=== PATIENT | female | born 1940 | race Caucasian/White ===

== ENCOUNTER 2019-01-02 21:54 | Emergency (ER) | payer OTHER ==
[2019-01-02 23:36] LABS: Absolute Lymphocytes (CBC) 1.8 K/uL (0.7-4.9); Absolute Monocytes 0.6 K/uL (0.1-1.3); Absolute Neutrophil 3.8 K/uL (1.8-8.0); Eosinophils % 2.2 % (0-4.4); Hematocrit 40.5 % (36.0-45.0); Lymphocytes % 28.4 % (15.3-44.8); MPV 7.8 fL (7.6-11.3); Monocytes % 9.6 % (3.3-12.3); RBC Red Blood Cell Count 4.76 M/uL (3.86-4.86)
[2019-01-02 23:47] LABS: Potassium 4.2 mmol/L (3.5-5.1)
--- NOTE | 2019-01-03 02:21 | ER ---
Nurse's Notes [facility] Name: Sivan Morris Age: 78 yrs Sex: Female : 1940 Arrival Date: 01/02/2019 Time: 22:01 Bed 28 Private MD: Diagnosis: Edema, not elsewhere classified Presentation: 01/02 22:01 Presenting complaint: Patient states: I have swelling in both of my legs for over a ed1 month now. No SOB. Transition of care: patient was not received from another setting of care. Onset of symptoms was November 2018. Risk Assessment: Do you want to hurt yourself or someone else? Patient reports no desire to harm self or others. Initial Sepsis Screen: Does the patient meet any 2 criteria? No. Patient's initial sepsis screen is negative. Does the patient have a suspected source of infection? No. Patient's initial sepsis screen is negative. Care prior to arrival: None. 22:01 Method Of Arrival: Ambulatory ed1 22:01 Acuity: BRIANA 3 ed1 Triage Assessment: 22:03 General: Appears in no apparent distress. Behavior is calm, cooperative. Pain: Denies ed1 pain. Historical: - Allergies: 22:03 No Known Allergies; ed1 - Home Meds: 22:03 None [Active]; ed1 - PMHx: 22:03 None; ed1 - PSHx: 22:03 None; ed1 - Immunization history:: Adult Immunizations not up to date, Flu vaccine is not up to date. - Social history:: Smoking status: Patient/guardian denies using tobacco. - Ebola Screening: : Patient negative for fever greater than or equal to 101.5 degrees Fahrenheit, and additional compatible Ebola Virus Disease symptoms Patient denies exposure to infectious person Patient denies travel to an Ebola-affected area in the 21 days before illness onset No symptoms or risks identified at this time. Screenin/23 00:29 Abuse screen:. Abuse screen: Denies threats or abuse. Denies injuries from another. mg2 Nutritional screening: No deficits noted. Tuberculosis screening: No symptoms or risk factors identified. Fall Risk None identified. Assessment: 00:29 General: Appears in no apparent distress. comfortable, Behavior is calm, cooperative. mg2 Pain: Denies pain. Neuro: No deficits noted. Cardiovascular: No deficits noted. Respiratory: Airway is patent Respiratory effort is even, unlabored, Respiratory pattern is regular, symmetrical. GI: No signs and/or symptoms were reported involving the gastrointestinal system. : No signs and/or symptoms were reported regarding the genitourinary system. EENT: No signs and/or symptoms were reported regarding the EENT system. Derm: Skin is intact, is healthy with good turgor, Skin is pink, warm \T\ dry. normal. Musculoskeletal: Circulation, motion, and sensation intact. Capillary refill < 3 seconds, Swelling present in right leg and left leg. 01:53 Reassessment: filling technician at bedside doing the procedure. mg2 02:42 Reassessment: Patient appears in no apparent distress at this time. Patient and/or mg2 family updated on plan of care and expected duration. Pain level reassessed. Patient is alert, oriented x 3, equal unlabored respirations, skin warm/dry/pink. Vital Signs: 01/02 22:03 BP 147 / 81; Pulse 73; Resp 18; Temp 98.0(O); Pulse Ox 98% on R/A; Height 5 ft. 2 in. ed1 (157.48 cm); Pain 0/10; 01/03 00:30 Pulse 75; Resp 18; Pulse Ox 98% on R/A; mg2 02:42 BP 132 / 78; Pulse 70; Resp 18; Temp 98; Pulse Ox 100% on R/A; Pain 0/10; mg2 ED Course: 01/02 22:01 Patient arrived in ED. ed1 22:03 Triage completed. ed1 22:03 Arm band placed on right wrist. ed1 22:17 Noah Boyle, TOPHER is Primary Nurse. mg2 22:28 Sher Pagan MD is Attending Physician. 23:43 Notified ED physician of a critical lab result(s). d dimer of 1542. fc 01/03 00:30 No provider procedures requiring assistance completed. Patient did not have IV access mg2 during this emergency room visit. 02:16 US Extremity Venous W Compression Pradeep In Process Unspecified. EDMS 02:43 Patient has correct armband on for positive identification. mg2 Administered Medications: No medications were administered Outcome: 02:21 Discharge ordered by . gs 02:42 Discharged to home ambulatory, with family. mg2 02:42 Condition: stable 02:42 Discharge instructions given to patient, family, Instructed on discharge instructions, follow up and referral plans. medication usage, Demonstrated understanding of instructions, follow-up care, medications, Prescriptions given X 1. 02:43 Patient left the ED. mg2 Signatures: Dispatcher [employer] EDMS Le Hylton, RN RN Jania Charles RN RN ed1 Sher Pagan MD MD Noah Boyle RN RN mg2
--- NOTE | 2019-01-03 02:21 | EDPHYS ---
Physician Documentation [facility] Name: Sivan Morris Age: 78 yrs Sex: Female : 1940 Arrival Date: 01/02/2019 Time: 22:01 Bed 28 Private MD: ED Physician Sher Pagan HPI: 01/03 01:37 This 78 yrs old Female presents to ER via Ambulatory with complaints of Leg gs Swelling. 01:37 The complaints affect the left leg and right leg. Onset: The symptoms/episode gs began/occurred 1 month(s) ago. Modifying factors: The symptoms are alleviated by nothing. the symptoms are aggravated by nothing. Associated signs and symptoms: Pertinent negatives fever, sob,cp. Severity of symptoms: At their worst the symptoms were moderate, in the emergency department the symptoms are unchanged. The patient has experienced similar episodes in the past, a few times. Historical: - Allergies: 01/02 22:03 No Known Allergies; ed1 - Home Meds: 22:03 None [Active]; ed1 - PMHx: 22:03 None; ed1 - PSHx: 22:03 None; ed1 - Immunization history:: Adult Immunizations not up to date, Flu vaccine is not up to date. - Social history:: Smoking status: Patient/guardian denies using tobacco. - Ebola Screening: : Patient negative for fever greater than or equal to 101.5 degrees Fahrenheit, and additional compatible Ebola Virus Disease symptoms Patient denies exposure to infectious person Patient denies travel to an Ebola-affected area in the 21 days before illness onset No symptoms or risks identified at this time. ROS: 01/03 01:37 All other systems are negative. gs Exam: 01:37 Head/Face: Normocephalic, atraumatic. Eyes: Pupils equal round and reactive to light, gs extra-ocular motions intact. Lids and lashes normal. Conjunctiva and sclera are non-icteric and not injected. Cornea within normal limits. Periorbital areas with no swelling, redness, or edema. ENT: Nares patent. No nasal discharge, no septal abnormalities noted. Tympanic membranes are normal and external auditory canals are clear. Oropharynx with no redness, swelling, or masses, exudates, or evidence of obstruction, uvula midline. Mucous membranes moist. Neck: Trachea midline, no thyromegaly or masses palpated, and no cervical lymphadenopathy. Supple, full range of motion without nuchal rigidity, or vertebral point tenderness. No Meningismus. Chest/axilla: Normal chest wall appearance and motion. Nontender with no deformity. No lesions are appreciated. Cardiovascular: Regular rate and rhythm with a normal S1 and S2. No gallops, murmurs, or rubs. Normal PMI, no JVD. No pulse deficits. Respiratory: Lungs have equal breath sounds bilaterally, clear to auscultation and percussion. No rales, rhonchi or wheezes noted. No increased work of breathing, no retractions or nasal flaring. Abdomen/GI: Soft, non-tender, with normal bowel sounds. No distension or tympany. No guarding or rebound. No evidence of tenderness throughout. Back: No spinal tenderness. No costovertebral tenderness. Full range of motion. Skin: Warm, dry with normal turgor. Normal color with no rashes, no lesions, and no evidence of cellulitis. Neuro: Awake and alert, GCS 15, oriented to person, place, time, and situation. Cranial nerves II-XII grossly intact. Motor strength 5/5 in all extremities. Sensory grossly intact. Cerebellar exam normal. Normal gait. 01:37 Constitutional: The patient appears alert, awake. 01:37 Musculoskeletal/extremity: Pulses: are normal with no appreciated deficits, Edema, 3+ to the left midcalf, left ankle, right midcalf and right ankle is noted. Vital Signs: 01/02 22:03 BP 147 / 81; Pulse 73; Resp 18; Temp 98.0(O); Pulse Ox 98% on R/A; Height 5 ft. 2 in. ed1 (157.48 cm); Pain 0/10; 01/03 00:30 Pulse 75; Resp 18; Pulse Ox 98% on R/A; mg2 02:42 BP 132 / 78; Pulse 70; Resp 18; Temp 98; Pulse Ox 100% on R/A; Pain 0/10; mg2 MDM: 01/02 23:09 Patient medically screened. gs 01/03 02:22 Differential diagnosis: edema,dvt,crf. Data reviewed: vital signs, nurses notes, lab gs test result(s), radiologic studies. Counseling: I had a detailed discussion with the patient and/or guardian regarding: the historical points, exam findings, and any diagnostic results supporting the discharge/admit diagnosis, the presence of at least one elevated blood pressure reading (>120/80) during this emergency department visit, lab results, radiology results, the need for outpatient follow up. Response to treatment: the patient's symptoms have mildly improved after treatment. Special discussion: I have referred the patient to see his PCP for further evaluation of high blood pressure. 01/02 23:10 Order name: CBC with Diff; Complete Time: 23:40 01/02 23:10 Order name: Basic Metabolic Panel; Complete Time: 23:48 01/02 23:10 Order name: D-Dimer; Complete Time: 23:48 01/02 23:49 Order name: US Extremity Venous W Compression Pradeep gs Administered Medications: No medications were administered Disposition: 01/03/19 02:21 Discharged to Home. Impression: Edema, not elsewhere classified. - Condition is Stable. - Discharge Instructions: Edema, Xtre-wm-Voun, Peripheral Edema. - Prescriptions for Triamterene- Hydrochlorothiazid 37.5-25 mg Oral Tablet - take 1 tablet by ORAL route once daily; 7 tablet. - Medication Reconciliation Form, Thank You Letter, Antibiotic Education, Prescription Opioid Use form. - Follow up: Private Physician; When: 1 - 2 days; Reason: Re-evaluation by your physician. Signatures: Dispatcher [employer] EDJania Morillo RN RN ed1 Sher Pagan MD MD Noah Boyle RN RN mg2 Corrections: (The following items were deleted from the chart) 02:43 02:21 01/03/2019 02:21 Discharged to Home. Impression: Edema, not elsewhere classified. mg2 Condition is Stable. Forms are Medication Reconciliation Form, Thank You Letter, Antibiotic Education, Prescription Opioid Use. Follow up: Private Physician; When: 1 - 2 days; Reason: Re-evaluation by your physician.
--- NOTE | 2019-01-03 07:09 | RAD REPORT ---
EXAM DESCRIPTION: US - Extrem Venous W Compress Pradeep - 01/03/2019 2:37 am COMPARISON: None. TECHNIQUE: Real-time sonographic evaluation of the bilateral lower extremity common femoral, superfi cial femoral, popliteal and posterior tibial veins was performed. FINDINGS: Normal compressibility, flow augmentation, phasic flow and spontaneous flow are identified in the left and right lower extremity common femoral, superficial femoral, popliteal and posterior t ibial veins. No intraluminal filling defects seen. IMPRESSION: No DVT in either lower extremity.
== END 2019-01-03 02:43 | disposition home or self-care (01) ==
LOC: ER 21:54
DX: R60.9 Edema, unspecified (principal)
CPT/HCPCS: 36415; 80048; 85025; 85379; 93970; 99283

== ENCOUNTER 2020-06-23 11:35 | Emergency (ER) | payer MEDICARE, OTHER ==
--- OUTSIDE RECORDS SUMMARY | 2020-06-23 11:47 | XMS REPORT | Summary of Care ---
:1940 Author Organization [facility] - [facility] Address [address] [place] [address] Care Team Providers Name Role Phone Malathi Ta MD Primary Care Provider [phone] Reason for Visit Reason Onset Date Comments Erroneous encounter-disregard 06/10/2020 Encounter Details Date Type Department Care Team Description 05/19/2020 Telemedicine Visit [facility] [place], Annie glynne t Alzheimer's disease without behavioral disturbance (Primary Dx); Pediatric and Adult Malathi Aquino MD Encounter for medication refill; Primary Care- [address] [place] [address] D r Leg swelling; [facility] 103 ERRONEOUS ENCOUNTER--DISREGARD [address] [place] [address], [address] [address] [place], [place] [phone] [address] Allergies No Known Allergiesdocumented as of this encounter (statuses as of 06/10/2020) Medications Medication Sig Dispensed Refills Start End Date Status Date PYRIDOXINE HCL, VITAMIN Take 20 mg 0 Active B6, (VITAMIN B-6 ORAL) by mouth daily. Take 20 mg daily. hydroCHLOROthiazide 50 Take 1 90 tablet 3 Active mg tabletIndications: tablet by 0 Encounter for mouth medication refill, Leg daily. Keep swelling on hold. HYDROCHLOROTHIAZIDE 50 TAKE 1 90 tablet 3 11/22/201 10/06/2 0 Discontinued mg tabletIndications: TABLET BY 9 20 (Reorder) Encounter for MOUTH EVERY medication refill, Leg MORNING AND swelling EVENING. documented as of this encounter (statuses as of 06/10/2020) Active Problems Problem Noted Date Prediabetes 11/23/2017 Hair loss 11/23/2017 Short-term memory loss 11/23/2017 documented as of this encounter (statuses as of 06/10/2020) Immunizations Name Administration Dates Next Due Influenza High Dose 06/11/2019, 07/05/2017 Pneumococcal 13 Conjugate, PCV13 (Prevnar 13) 11/23/2017 Pneumococcal Polysaccharide, PPSV23 (PNEUMOVAX) 06/11/2019 documented as of this encounter Social History Tobacco Use Types Packs/Day Years Used Date Former Smoker Cigarettes Quit: 11/02/18 98 Smokeless Tobacco: Never Used Comments: quit late Alcohol Use Drinks/Week oz/Week Comments No Sex Assigned at Date Recorded Not on file COVID-19 Exposure Response Date Recorded In the last month, have you been in contact Unable to assess 05/18/2020 11:03 AM CDT with someone who was confirmed or suspected to have Coronavirus / COVID-19? documented as of this encounter Last Filed Vital Signs Not on filedocumented in this encounter Progress Notes Malathi Ta MD - 05/19/2020 3:00 PM CDTerror documented in this encounter Plan of Treatment Health Maintenance Due Date Last Done Comments Depression Screening 1952 Medicare Wellness Visit 2006 Osteoporosis Screening 2006 INFLUENZA VACCINE (#1) 2020 06/11/2019, 07/05/2017 DTaP,Tdap,and Td Vaccines (1 06/11/2020 Pos tponed from 1960 - Tdap) (Insurance / Fin ancial) Zoster Recombinant Vaccine 06/11/2020 Postp oned from 12/25/1991 (SHINGRIX) (1 of 2) (Insurance / Financial) PNEUMOCOCCAL VACCINES 65+ Completed 06/11/2019, 11/23/2017 documented as of this encounter Results Not on filedocumented in this encounter Visit Diagnoses Diagnosis Late onset Alzheimer's disease without b ehavioral disturbance - Primary Encounter for medication refill Issue of repeat prescriptions Leg swelling Swelling of limb ERRONEOUS ENCOUNTER--DISREGARD documented in this encounter Insurance Payer Benefit Plan / Subscriber ID Effective Phone Address T e Group [facility] [id number] 2019-Toyin sanchez Formerly [facility] HEALTHCARE - MEDIC[facility] documented as of this encounter
--- OUTSIDE RECORDS SUMMARY | 2020-06-23 11:47 | XMS REPORT | Summary of Care ---
:1940 Author Organization [facility] - [facility] Address [address] [place] [address] Care Team Providers Name Role Phone Malathi Ta MD Primary Care Provider [phone] Reason for Visit Reason Comments Assessment alt visit Encounter Details Date Type Department Care Team Description 05/19/2020 Telephone [facility] Pediatric Jenni Ta Assessment (alt visit) and Adult Primary MD [facility]- [address], [address] [phone] [address] [phone] Allergies No Known Allergiesdocumented as of this encounter (statuses as of 06/10/2020) Medications Medication Sig Dispensed Refills Start Date End Date Status PYRIDOXINE HCL, VITAMIN B6, Take 20 mg by 0 Active (VITAMIN B-6 ORAL) mouth daily. Take 20 mg daily. hydroCHLOROthiazide 50 mg Take 1 tablet 90 tablet 3 05/19/2020 Active tabletIndications: by mouth Encounter for medication daily. Keep refill, Leg swelling on hold. documented as of this encounter (statuses as [...] Signs Not on filedocumented in this encounter Miscellaneous Notes Telephone Encounter - Malathi Ta MD - 06/10/2020 12:03 PM CDTSpoke with patient niece, patient is not present. Per patient niece, patient is now living with her and patients granddaughter is still helping take care of her. Her memory is worse, she's wondering off, and she's using the bathroom on herself. She hasn't noticed any signs of infection but she has noticed a rash in the patients private area, she feels like it's related to her using the bathroom on herself and she doesn't think it's a yeast infections. She's tried to get her to wear diapers and pads but patient doesn't like them and takes them off. She states patient gets angery when she's told whatneeds to be done. Patient niece states she doesn't know what to do, she's a little tearful and states she just wants to get her the help she needs. Patient has been taking B12, B1, B6, zinc, and melatonin. Niece reports no mold exposure as far as she's aware of. Niece states she has a hard time getting her to eat vegetables, discussed green smoothies. Late onset Alzheimer's disease without behavioral disturbance (primary encounter diagnosis) Comment: memory seems to be worse. Family would like to see about provider services, referral sent to social work. Plan: CONSULT/REFERRAL SOCIAL WORK-AMBULATORY Encounter for medication refill Comment: needs refill. Plan: hydroCHLOROthiazide 50 mg tablet Leg swelling Comment: controlled on medication. Plan: hydroCHLOROthiazide 50 mg tablet, CANCELED: CONSULT/REFERRAL SOCIAL WORK-AMBULATORY documented in this encounter Plan of Treatment [...] Results Not on filedocumented in this encounter Insurance Payer Benefit Plan / Subscriber ID Effective Phone Address T ype Group Dates [facility] [id number] 2019-Toyin sanchez [facility] HEALTHCARE - MEDICARE HMO MANAGED MEDICARE ADVANTAGE documented as of this encounter
--- OUTSIDE RECORDS SUMMARY | 2020-06-23 11:47 | XMS REPORT | Summary of Care ---
:1940 Author Organization [facility] - [facility] Address [address] [place] [address] Care Team Providers Name Role Phone Malathi Ta MD Primary Care Provider [phone] Reason for Visit Reason Comments Home Care Planning Provider Social Work Medicaid Encounter Details Date Type Department Care Team Description 05/21/[address] [facility] Alice Jim, Home Car e Planning Pediatric and Adult MEDICAL OFFICE SUPERVISOR (Provider); Social Primary Care- [address] [place] [address] (Medica id) [place] [address] Drive, [address] [place] [address] Allergies No Known Allergiesdocumented as of this encounter (statuses as of 05/21/2020) Medications Medication Sig Dispensed Refills Start Date End Date Status PYRIDOXINE HCL, VITAMIN B6, Take 20 mg by 0 Active (VITAMIN B-6 ORAL) mouth daily. Take 20 mg daily. hydroCHLOROthiazide 50 mg Take 1 tablet 90 tablet 3 05/19/2020 Active tabletIndications: by mouth Encounter for medication daily. Keep refill, Leg swelling on hold. documented as of this encounter (statuses as of 05/21/2020) Active Problems Problem Noted Date Prediabetes 11/23/2017 Hair loss 11/23/2017 Short-term memory loss 11/23/2017 documented as of this encounter (statuses as of 05/21/2020) Immunizations Name Administration Dates Next Due Influenza [...] on filedocumented in this encounter Progress Notes Alice Jim LMSW - 05/21/2020 1:52 PM CDTSocial Work Note Clinical Coordinator (SW) received order/consult for Provider services and Medicaid. Sw spoke with patients Niece (Lenora Hinds p: [phone]) by phone to assess needs. Niece shared patients illness history; expressing feelings. SW provided active and reflective feelings; validating Niece's feelings. Niece requests assitance with patients daily cares. SW reviewed insurance limitations for Provider services. Niece verbalized understanding. SW reviewedMedicaid program eligibility. Patient not eligible for program SW reviewed [facility]; providing contact information (p: [phone]). Niece vebralzied understanding. SW reviewed D-CARE study (p: [phone]) and [facility] Caregiver Connections support group (p: [phone]); providing contact information. Niece verbalized understanding; expressing appreciation. No new need identified at present. SW services complete. Alice Jim LMSW, [facility] Clinical Coordinator- Application Defense Manager Management [facility]- [facility] Tyrell Carreno [place] Ph: [phone] Pager: [phone] Em: [email or web address] documented in this encounter Plan of Treatment [...] Effective Phone Address T ype Group Dates [facility]/[place] [id number] 2019-Toyin Potts [facility] - MEDICARE HMO MANAGED MEDICARE ADVANTAGE documented as of this encounter
--- OUTSIDE RECORDS SUMMARY | 2020-06-23 11:47 | XMS REPORT | Summary of Care ---
:1940 Author Organization [facility] - Health Address [address] [place] [address] Care Team Providers Name Role Phone Malathi Ta MD Primary Care Provider [phone] Reason for Visit Reason Comments Error Encounter Details Date Type Department Care Team Description 06/10/2020 Telephone [facility] Pediatric and Nora Ta Error Adult Primary Care- [address] [address] [address] [place] [address] [place] [address] [phone] Allergies No Known Allergiesdocumented as of this [...] Encounter - Malathi Ta MD - 06/10/2020 12:01 PM CDTerror documented in this encounter Plan [...] Effective Phone Address T ype Group Dates [employer] [id number] 2019-Toyin sanchez [facility] HEALTHCARE - MEDIC[facility]AGE documented as of this encounter
--- OUTSIDE RECORDS SUMMARY | 2020-06-23 11:48 | XMS REPORT | Continuity of Care Document ---
:1940 Author Organization [facility] t Address [address] [place] [address] Care Team Providers Name Role Phone Miles Ta MD Attending Clinician Nathanael Jim LMSW Attending Clinician Pob, Lab Main Attending Clinician Unavailable Problems This patient has no known problems. Allergies, Adverse Reactions, Alerts This patient has no known allergies or adverse reactions. Medications This patient has no known medications. Procedures This patient has no known procedures. Encounters Start End Encounter Admission Attending Care Care Encounter Source Date/Time Date/Time Type Type Clinicians Facility Department ID 2020-06-10 2020-06-10 Telephone CHARLA Ta [id number] 00:00:00 00:00:00 Malathi Joseph [id number] [place] [id number] Prof[place] [phone] [address] 2020-05-21 2020-05-21 Patient CHARLA Jim [id number] 00:00:00 00:00:00 Outreach Alice Joseph [id number] [place] [id number] Prof[place] [phone] [address] 2020-05-19 2020-05-19 Telemedici CHARLA Ta [id number] 08:07:16 08:47:16 ne Visit Malathi Joseph [id number] [place] [id number] Professio [phone] [address] 2020-05-19 2020-05-19 Telephone [facility] [id number] 00:00:00 00:00:00 Malathi A Agency [id number] [place] [id number] Professio [phone] [address] 2020-03-18 2020-03-18 Telephone [facility] [id number] 00:00:00 00:00:00 Malathi Joseph [id number] [place] [id number] Professio [phone] [address] 2020-03-05 2020-03-05 Highway Construction Inspector Gloria Abel [facility] [id number] 11:30:04 11:45:04 Visit Lab Main Jake [id number] [place] [id number] Professio [phone] [address] Results This patient has no known results.
--- NOTE | 2020-06-23 13:06 | RAD REPORT ---
EXAM DESCRIPTION: CT - Facial Bones W/ Mpr - 06/23/2020 12:44 pm CLINICAL HISTORY: Facial injury with facial pain status post fall COMPARISON: None TECHNIQUE: Computed axial tomography of the face was obtained. Coronal and sagittal reconstruction w as performed. All CT scans are performed using dose optimization technique as appropriate and may include automated exposure control or mA/KV adjustment according to patient size. FINDINGS: A fracture is not seen. A TMJ dislocation is not noted. The globes are intact. Fluid within the sinuses is not seen. IMPRESSION: Negative for a facial fracture.
--- NOTE | 2020-06-23 13:06 | RAD REPORT ---
EXAM DESCRIPTION: CT - Head C Spine Mpr Wo Con - 06/23/2020 12:44 pm CLINICAL HISTORY: Head and neck injury status post fall. Head and neck pain COMPARISON: None. TECHNIQUE: Computed axial tomography of the head and cervical spine was obtained. Sagittal and coronal reconstruction was performed. All CT scans are performed using dose optimization technique as appropriate and may include automated exposure control or mA/KV adjustment according to patient size. FINDINGS: Mild to moderate low-density areas within periventricular, subcortical white matter likely ischemic secondary to small vessel disease An intracranial bleed is not seen. The ventricles are normal in caliber. An extra-axial fluid collect ion is not noted.Fluid within the visualized sinuses and mastoids is not seen A cervical fracture is not visualized. No dislocation is noted. Spondylosis cervical spine IMPRESSION: No acute intracranial abnormality is seen. A cervical fracture is not visualized. If the patient continues to have symptoms to suggest intracra nial /spinal cord pathology then MRI would be recommended
--- NOTE | 2020-06-23 13:16 | RAD REPORT ---
EXAM DESCRIPTION: RAD - Shoulder Right 2 View - 06/23/2020 12:55 pm CLINICAL HISTORY: Right shoulder pain FINDINGS: No fracture or dislocation is seen. Bones are osteoporotic
--- NOTE | 2020-06-23 13:18 | RAD REPORT ---
EXAM DESCRIPTION: Tad Single View06/23/2020 12:55 pm CLINICAL HISTORY: Chest pain COMPARISON: none FINDINGS: The lungs appear clear of acute infiltrate. The heart is normal size IMPRESSION: No acute abnormalities displayed
--- NOTE | 2020-06-23 15:26 | ER ---
Nurse's Notes [facility] Name: Sivan Morris Age: 79 yrs Sex: Female : 1940 Arrival Date: 06/23/2020 Time: 11:41 Bed 15 Private MD: Diagnosis: Fall on same level from slipping, tripping and stumbling;Abrasion of eyelid and periocular area;Abrasion of right shoulder;Pain in right shoulder;Unspecified injury of head Presentation: 06/23 11:41 Chief complaint: EMS states: tripped on cement curve and fell hitting right cheek and aa5 right arm. Abrasions noted to right cheek and right shoulder. Pt denies head injury, denies LOC. Coronavirus screen: Client denies travel out of the [place] in the last 14 days. At this time, the client does not indicate any symptoms associated with coronavirus-19. Ebola Screen: Patient negative for fever greater than or equal to 101.5 degrees Fahrenheit, and additional compatible Ebola Virus Disease symptoms. Initial Sepsis Screen: Does the patient meet any 2 criteria? No. Patient's initial sepsis screen is negative. Does the patient have a suspected source of infection? No. Patient's initial sepsis screen is negative. Risk Assessment: Do you want to hurt yourself or someone else? Patient reports no desire to harm self or others. Onset of symptoms was June 23, 2020. 11:41 Method Of Arrival: EMS: [facility] aa5 11:41 Acuity: BRIANA 3 aa5 11:42 Care prior to arrival: IV initiated. 20 GA, in the right antecubital area, Glucose aa5 check: 101. Historical: - Allergies: 11:43 No Known Allergies; aa5 - Home Meds: 11:45 hydrochlorothiazide 50 mg Oral tab once daily [Active]; aa5 - PMHx: 11:43 Dementia; Hypertension; aa5 - Immunization history:: Adult Immunizations unknown. - Social history:: Smoking status: Patient denies any tobacco usage or history of. Screenin:56 Abuse screen: Denies threats or abuse. Nutritional screening: No deficits noted. tw2 Tuberculosis screening: No symptoms or risk factors identified. Fall Risk Secondary diagnosis (15 points) impaired mobility. Assessment: 12:05 General: Appears in no apparent distress. slender, Behavior is calm, cooperative, tw2 appropriate for age. Pain: Complains of pain in right cheek and right shoulder. Neuro: Level of Consciousness is awake, alert, confused, Oriented to person. Cardiovascular: Heart tones S1 S2 Patient's skin is warm and dry. Respiratory: Airway is patent Respiratory effort is even, unlabored, Respiratory pattern is regular, symmetrical, Breath sounds are clear bilaterally. GI: No signs and/or symptoms were reported involving the gastrointestinal system. Abdomen is flat, Bowel sounds present X 4 quads. : No signs and/or symptoms were reported regarding the genitourinary system. EENT: No signs and/or symptoms were reported regarding the EENT system. Derm: No signs and/or symptoms reported regarding the dermatologic system. Musculoskeletal: Circulation, motion, and sensation intact. Range of motion: intact in all extremities. Injury Description: Abrasion sustained to right cheek and right shoulder. 12:06 Reassessment: pt family at bedside states, "do you know where EMS found her, she isnt tw2 diagnosed with dementia but we are pretty sure she has it because we did not know where she was at", pt lives with sister and her great niece is at bedside, provider notified. 12:17 Reassessment: per charge nurse TOPHER Cardoza report from EMS states pt was a block away from tw2 home, family notified. 12:27 Reassessment: family reports PCP is Dr. Ta in [place]. tw2 13:50 Reassessment: pt escorted to restroom,pt disoriented as to the need to help pull pants tw2 down to remove brief, foul odor noted, pt had urine soiled brief that had started falling apart in restroom, pt unable to catch a urine sample at this time, pt cleaned and new brief placed on, pt escorted to back to exam room at this time, family at bedside notified of need for more frequent brief changes and cleaning and assistance in personal hygiene. 14:03 Reassessment: Patient appears in no apparent distress at this time. No changes from tw2 previously documented assessment. Patient and/or family updated on plan of care and expected duration. Pain level reassessed. 15:10 Reassessment: Patient appears in no apparent distress at this time. No changes from tw2 previously documented assessment. Patient and/or family updated on plan of care and expected duration. Pain level reassessed. 15:10 Reassessment: provider at bedside at this time. tw2 15:44 Reassessment: Patient appears in no apparent distress at this time. No changes from tw2 previously documented assessment. Patient and/or family updated on plan of care and expected duration. Pain level reassessed. Vital Signs: 11:41 BP 155 / 99; Pulse 91; Resp 16 S; Temp 98.2(O); Pulse Ox 96% on R/A; aa5 12:30 Weight 56.7 kg (R); tw2 13:00 BP 140 / 94; Pulse 87; Resp 18; Pulse Ox 100% on R/A; tw2 14:00 BP 141 / 67; Pulse 79; Resp 17; Pulse Ox 100% on R/A; tw2 15:17 BP 99 / 83; Pulse 75; Resp 16; Temp 98.0(O); Pulse Ox 97% on R/A; mh5 15:45 BP 99 / 62; Pulse 62; Resp 18; Pulse Ox 100% on R/A; tw2 ED Course: 11:41 Patient arrived in ED. aa5 11:41 Arm band placed on Patient placed in an exam room, on a stretcher. aa5 11:41 Maintain EMS IV. Dressing intact. Good blood return noted. Site clean \\T\\ dry. Gauge \\T\\ tw 2 site: 20 g. 11:42 Triage completed. aa5 11:42 Placed in gown. Bed in low position. Side rails up X 1. Adult w/ patient. Cardiac tw2 monitor on. Pulse ox on. NIBP on. Warm blanket given. 11:56 Geraldine Wong, RN is Primary Nurse. tw2 12:33 Adriana Almanza FNP-C is PHCP. snw 12:33 Phoenix Stout MD is Attending Physician. snw 12:39 CT completed. Patient tolerated procedure well. Patient moved to CT via stretcher. sj Patient moved to radiology Patient moved back from CT. 12:42 CT Head C Spine In Process Unspecified. EDMS 12:42 Facial Bones W/O Con CT In Process Unspecified. EDMS 12:55 Chest Single View XRAY In Process Unspecified. EDMS 12:55 Shoulder Right (2 View) XRAY In Process Unspecified. EDMS 15:37 IV discontinued, Pressure dressing applied. [facility] 15:46 No provider procedures requiring assistance completed. tw2 15:46 IV discontinued, intact, bleeding controlled, No redness/swelling at site. Pressure tw2 dressing applied, by glenroy Ling. 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 Exp: tw2 10/25/2021. Lot #: [id number]. } Route: IM; Site: right deltoid; 15:47 Follow up: Response: No adverse reaction tw2 Outcome: 15:25 Discharge ordered by . snw 15:47 Discharged to home via wheelchair, with family. tw2 15:47 Condition: stable 15:47 Discharge instructions given to patient, family, Instructed on discharge instructions, follow up and referral plans. medication usage, Demonstrated understanding of instructions, follow-up care, medications, Prescriptions given X 1. 15:58 Patient left the ED. tw2 Signatures: Dispatcher [employer] EDMS Adriana Almanza, SENIOR APPLICATIONS ARCHITECT-C SENIOR APPLICATIONS ARCHITECT-Mallory Danielson Audri, RN RN aa5 Geraldine Wong RN RN 2 Haleigh Lira [facility] Corrections: (The following items were deleted from the chart) 11:44 11:41 Acuity: BRIANA 4 aa5 aa5
--- NOTE | 2020-06-23 15:26 | EDPHYS ---
Physician Documentation [facility] Name: Sivan Morris Age: 79 yrs Sex: Female : 1940 Arrival Date: 06/23/2020 Time: 11:41 Bed 15 Private MD: ED Physician Phoenix Stout HPI: 06/23 16:01 This 79 yrs old Female presents to ER via EMS with complaints of Fall Injury. snw 16:01 Details of fall: The patient fell from an upright position, while walking. Onset: The snw symptoms/episode began/occurred acutely. Associated injuries: The patient sustained injury to the head, right shoulder. Severity of symptoms: At their worst the symptoms were mild. It is unknown whether or not the patient has had similar symptoms in the past. sees Dr. Maurer in [place]. Lives with Sister. Needs home health and community services. Historical: - Allergies: 11:43 No Known Allergies; aa5 - Home Meds: 11:45 hydrochlorothiazide 50 mg Oral tab once daily [Active]; aa5 - PMHx: 11:43 Dementia; Hypertension; aa5 - Immunization history:: Adult Immunizations unknown. - Social history:: Smoking status: Patient denies any tobacco usage or history of. ROS: 15:58 Constitutional: Negative for fever, chills, and weight loss, Eyes: Negative for injury, snw pain, redness, and discharge, ENT: Negative for injury, pain, and discharge, Neck: Negative for injury, pain, and swelling, Cardiovascular: Negative for chest pain, palpitations, and edema, Respiratory: Negative for shortness of breath, cough, wheezing, and pleuritic chest pain, Abdomen/GI: Negative for abdominal pain, nausea, vomiting, diarrhea, and constipation, Back: Negative for injury and pain, : Negative for injury, bleeding, discharge, and swelling, MS/Extremity: Negative for injury and deformity, Skin: Negative for injury, rash, and discoloration, Psych: Negative for depression, anxiety, suicide ideation, homicidal ideation, and hallucinations. 15:58 Neuro: Positive for hx of dementia, Negative for loss of consciousness. Exam: 15:54 Constitutional: This is a well developed, well nourished patient who is awake, alert, snw and in no acute distress. Head/Face: Normocephalic, atraumatic. Eyes: Pupils equal round and reactive to light, extra-ocular motions intact. Lids and lashes normal. Conjunctiva and sclera are non-icteric and not injected. Cornea within normal limits. Periorbital areas with no swelling, redness, or edema. ENT: Nares patent. No nasal discharge, no septal abnormalities noted. Tympanic membranes are normal and external auditory canals are clear. Oropharynx with no redness, swelling, or masses, exudates, or evidence of obstruction, uvula midline. Mucous membranes moist. Neck: Trachea midline, no thyromegaly or masses palpated, and no cervical lymphadenopathy. Supple, full range of motion without nuchal rigidity, or vertebral point tenderness. No Meningismus. Chest/axilla: Normal chest wall appearance and motion. Nontender with no deformity. No lesions are appreciated. Cardiovascular: Regular rate and rhythm with a normal S1 and S2. No gallops, murmurs, or rubs. Normal PMI, no JVD. No pulse deficits. Respiratory: Lungs have equal breath sounds bilaterally, clear to auscultation and percussion. No rales, rhonchi or wheezes noted. No increased work of breathing, no retractions or nasal flaring. Abdomen/GI: Soft, non-tender, with normal bowel sounds. No distension or tympany. No guarding or rebound. No evidence of tenderness throughout. Back: No spinal tenderness. No costovertebral tenderness. Full range of motion. Skin: Warm, dry with normal turgor. Normal color with no rashes, abrasions to right upper eyelid, right shoulder but no evidence of cellulitis. MS/ Extremity: Pulses equal, no cyanosis. Neurovascular intact. Full, normal range of motion. Neuro: Awake and alert, GCS 15, oriented to person, place, time, and situation. Cranial nerves II-XII grossly intact. Motor strength 5/5 in all extremities. Sensory grossly intact. Cerebellar exam normal. Normal gait. Psych: Awake, alert, with orientation to person, place and time. Behavior, mood, and affect are within normal limits. Vital Signs: 11:41 BP 155 / 99; Pulse 91; Resp 16 S; Temp 98.2(O); Pulse Ox 96% on R/A; aa5 12:30 Weight 56.7 kg (R); tw2 13:00 BP 140 / 94; Pulse 87; Resp 18; Pulse Ox 100% on R/A; tw2 14:00 BP 141 / 67; Pulse 79; Resp 17; Pulse Ox 100% on R/A; tw2 15:17 BP 99 / 83; Pulse 75; Resp 16; Temp 98.0(O); Pulse Ox 97% on R/A; mh5 15:45 BP 99 / 62; Pulse 62; Resp 18; Pulse Ox 100% on R/A; tw2 MDM: 12:33 Patient medically screened. snw 15:51 Data reviewed: vital signs, nurses notes. Data interpreted: Pulse oximetry: on room air snw is 100 %. Interpretation: normal. Counseling: I had a detailed discussion with the patient and/or guardian regarding: the historical points, exam findings, and any diagnostic results supporting the discharge/admit diagnosis, radiology results, the need for outpatient follow up, for definitive care, to return to the emergency department if symptoms worsen or persist or if there are any questions or concerns that arise at home. Special discussion: Based on the patient's history, exam and DX evaluation, there is no indication for emergent intervention or inpatient TX. It is understood by the patient/guardian that if the SXs persist or worsen they need to return immediately for re-evaluation. Based on the history and exam findings, there is no indication for further emergent testing or inpatient evaluation. I discussed with the patient/guardian the need to see the primary care provider for further evaluation of the symptoms. 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 Exp: 10/25/2021. Lot #: [id number]. } Route: IM; Site: right deltoid; 15:47 Follow up: Response: No adverse reaction tw2 Disposition: 06/24 06:59 Co-signature as Attending Physician, Phoenix Stout MD I agree with the assessment and teto plan of care. Disposition: 06/23/20 15:25 Discharged to Home. Impression: Fall on same level from slipping, tripping and stumbling, Abrasion of eyelid and periocular area, Abrasion of right shoulder, Pain in right shoulder, Unspecified injury of head. - Condition is Stable. - Discharge Instructions: Head Injury, Adult, Fall Prevention in the Home, Musculoskeletal Pain, Shoulder Pain, VIS, Tetanus, Diphtheria (Td) - CDC, Shoulder Range of Motion Exercises, Heat Therapy. - Prescriptions for Augmentin ES- 600 600-42.9 mg/5 mL Oral Suspension for Reconstitution - take 7.2 milliliter by ORAL route every 12 hours for 10 days Max = 875mg/dose; 150 milliliter. - Medication Reconciliation Form, Thank You Letter, Antibiotic Education, Prescription Opioid Use form. - Follow up: Emergency Department; When: As needed; Reason: Worsening of condition. Follow up: Private Physician; When: 1 - 2 days; Reason: Recheck today's complaints, Continuance of care, Re-evaluation by your physician. Signatures: Dispatcher [employer] EDPhoenix Doyle MD MD cha Waters, Shelly, FACIAL OPERATOR-C FACIAL OPERATOR-Csnw Nani Rodriguez, RN RN aa5 Geraldine Wong RN RN tw2 Corrections: (The following items were deleted from the chart) 06/23 15:25 15:25 06/23/2020 15:25 Discharged to Home. Impression: Fall on same level from snw slipping, tripping and stumbling; Abrasion of eyelid and periocular area; Abrasion of right shoulder; Pain in right shoulder. Condition is Stable. Forms are Medication Reconciliation Form, Thank You Letter, Antibiotic Education, Prescription Opioid Use. Follow up: Emergency Department; When: As needed; Reason: Worsening of condition. Follow up: Private Physician; When: 1 - 2 days; Reason: Recheck today's complaints, Continuance of care, Re-evaluation by your physician. snw 15:58 15:25 06/23/2020 15:25 Discharged to Home. Impression: Fall on same level from tw2 slipping, tripping and stumbling; Abrasion of eyelid and periocular area; Abrasion of right shoulder; Pain in right shoulder; Unspecified injury of head. Condition is Stable. Forms are Medication Reconciliation Form, Thank You Letter, Antibiotic Education, Prescription Opioid Use. Follow up: Emergency Department; When: As needed; Reason: Worsening of condition. Follow up: Private Physician; When: 1 - 2 days; Reason: Recheck today's complaints, Continuance of care, Re-evaluation by your physician. snw
[2020-06-23] MEDS ORDERED: CEFTRIAXONE 1000 MG/VIAL ONE (15:41)
[2020-06-23] MEDS ORDERED: WATER FOR INJ,STERILE 10 ML ONE (15:42)
[2020-06-23] MEDS ORDERED: TETANUS & DIPHTHERIA TOX,ADULT 0.5 ML VIAL ONE (15:42)
[2020-06-23 16:43] VITALS: TEMP 98
[2020-06-23 16:44] VITALS: BP 99/62; O2SAT 100
== END 2020-06-23 15:58 | disposition home or self-care (01) ==
LOC: ER 11:35
DX: S40.211A Abrasion of right shoulder, initial encounter (principal); S00.211A Abrasion of right eyelid and periocular area, initial encounter; S09.90XA Unspecified injury of head, initial encounter; W18.09XA Striking against other object with subsequent fall, initial encounter; Y93.01 Activity, walking, marching and hiking; Y92.9 Unspecified place or not applicable; Z23 Encounter for immunization; I10 Essential (primary) hypertension; F03.90 Unspecified dementia, unspecified severity, without behavioral disturbance, psychotic disturbance, mood disturbance, and anxiety
CPT/HCPCS: 70450; 70486; 71045; 72125; 76377; 90471; 90714; 96372; 99285